=== PATIENT | male | born 1995 | race Caucasian/White ===

== ENCOUNTER 2020-01-26 13:01 | Emergency (ER) | payer OTHER, BC ==
[2020-01-26 13:34] VITALS: BP 111/55; PULSE 68; TEMP 98.3; BMI 25.8
--- NOTE | 2020-01-26 13:51 | PDOC ---
History of Present Illness - General Chief Complaint: Burn Stated Complaint: FACE BURN Time Seen by Provider: 01/26/20 13:44 History Source: Patient Exam Limitations: No Limitations - History of Present Illness Initial Comments: 01/26/20 14:06 States while at work today at [employer], was performing some welding and rubbed right cheek against hot copper pipe causing a burn to the right cheek. Use some cool compresses and some "burn cream" that facility had and came for the emergency department for evaluation. Denies any other injury Occurred: reports: just prior to arrival, this afternoon Severity: reports: mild, moderate Pain Location: reports: face Method of Injury: Yes: direct blow Loss of Consciousness: no loss of consciousness Associated Symptoms (Fall): denies symptoms Past History - Travel Traveled outside of the country in the last 30 days: No Close contact w/someone who was outside of country & ill: No - Past Medical History Allergies/Adverse Reactions: Allergies Allergy/AdvReac Type Severity Reaction Status Date / Time No Known Allergies Allergy Verified 06/27/13 12:06 Home Medications: Ambulatory Orders Acetaminophen W/ Codeine #3 [Tylenol # 3] 1 - 2 tab PO Q6H #10 tablet 06/27/13 No Home Medications 0 dose .ROUTE UTDICT 06/27/13 COPD: No - Immunization History Immunization Up to Date: No - Psycho Social/Smoking Cessation Hx Smoking Status: Yes Smoking History: Current every day smoker Have you smoked in the past 12 months: Yes Number of Cigarettes Smoked Daily: 20 Information on smoking cessation initiated: No Hx Alcohol Use: No Drug/Substance Use Hx: No Review of Systems - Review of Systems Able to Perform ROS?: Yes Is the patient limited Persian proficient: Yes Constitutional: Yes: See HPI. No: Symptoms Reported, Fever, Malaise HEENTM: Yes: Symptoms Reported, See HPI Respiratory: No: See HPI Integumentary: Yes: Symptoms Reported, Other (right cheek) All Other Systems: Reviewed and Negative *Physical Exam - Vital Signs Last Vital Signs Temp Pulse Resp BP Pulse Ox 98.3 F 68 18 111/55 L 100 01/26/20 13:31 01/26/20 13:31 01/26/20 13:31 01/26/20 13:31 01/26/20 13:31 - Physical Exam General Appearance: Yes: Nourished, Appropriately Dressed, Mild Distress HEENT: positive: TIFFANIE, Normal ENT Inspection, TMs Normal, Pharynx Normal Neck: positive: Supple. negative: Tender Musculoskeletal: positive: Normal Inspection Extremity: positive: Normal Inspection Integumentary: positive: Pale, Other (superficial burn extending from right zygomatic arch thru right lateral cheek-superficial only, no noted blistering or denuded skin along burn line.) Neurologic: positive: security system installer II-XII NML intact, Fully Oriented, Alert, Normal Mood/Affect, Normal Response, Motor Strength 03/27 ED Progress Note - Progress Note Progress Note: 01/26/20 14:02 Superficial facial burn from hot pipe. Apply bacitracin ointment and cool compresses and will follow-up with PMD as needed Discharge - Discharge Information Problems reviewed: Yes Clinical Impression/Diagnosis: Facial burn Qualifiers: Encounter type: initial encounter Burn degree: superficial (1st degree) Qualified Code(s): T20.10XA - Burn of first degree of head, face, and neck, unspecified site, initial encounter Condition: Stable Disposition: HOME - Admission No - Follow up/Referral Referrals: Obey Zhang MD [Primary Care Provider] - - Patient Discharge Instructions Patient Printed Discharge Instructions: DI for Tong Additional Instructions: Rest, avoid strenuous activity or exercise, hot sweaty environments until wound healed Do not use razor or other abrasive substances on face until wound is healed Reapply bacitracin ointment twice a day until wound is healed May use aloe vera gel Ibuprofen 2-200 mg tablets every 6 hour for pain and swelling as needed Return to emergency department for worsening pain, swelling, evidence of infection Your Tetanus/ diphtheria/ Pertussis booster shot was updated today - Post Discharge Activity Work/Back to School Note: Back to Work
[2020-01-26] MEDS ORDERED: DIPHTH,PERTUSS(ACELL),TET 0.5 ML DISP.SYRIN IM ONE ×2 (14:12)
== END 2020-01-26 14:20 | disposition home or self-care (01) ==
LOC: JERFT 13:01
PROC: 3E0234Z Introduction of Serum, Toxoid and Vaccine into Muscle, Percutaneous Approach (ICD-10-PCS; principal; 2020-01-26)
DX: T20.16XA Burn of first degree of forehead and cheek, initial encounter (principal); X19.XXXA Contact with other heat and hot substances, initial encounter; Y93.89 Activity, other specified; Y92.63 Factory as the place of occurrence of the external cause; Y99.0 Civilian activity done for income or pay; F17.210 Nicotine dependence, cigarettes, uncomplicated
CPT/HCPCS: 90715; 99282-25